=== PATIENT | female | born 1960 | race Caucasian/White ===

== ENCOUNTER 2021-05-17 13:09 | Observation (INO) ==
[2021-05-17] MEDS ORDERED: *HR* LORazepam 2 MG/ML VIAL IVP ONE (13:30)
[2021-05-17] MEDS ORDERED: *HR* LORazepam 2 MG/ML VIAL ONE (13:31)
[2021-05-17] MEDS ORDERED: *HR* LORazepam 2 MG/ML VIAL IM ONE (13:35)
[2021-05-17 14:20] LABS: Basophils # 0.1 K/mcL (0.0-0.2); Basophils % 0.4 %; Eosinophils # 0.2 K/mcL (0.0-0.6); Eosinophils % 1.3 %; Hematocrit 41.8 % (35.3-44.9); Hemoglobin 13.7 g/dL (11.5-15.4); Immature Granulocytes % 0.4 % (0-4); Lymphocytes # 3.8 K/mcL (0.6-4.6); Lymphocytes % 27.2 %; Mean Corpuscular HGB Conc 32.8 g/dL (31.6-35.5); Mean Corpuscular Hemoglobin 32.1 pg (28.0-33.3); Mean Corpuscular Volume 97.9 fL (83.0-100.0); Monocytes % 7.2 %; Neutrophils # 8.9 K/mcL (1.6-8.9); Platelet Count 362 K/mcL (140-400); Red Blood Count 4.27 M/mcL (3.82-4.97); Red Cell Distribution Width 13.8 % (11.5-14.5); Segmented Neutrophils % 63.5 %
[2021-05-17 15:07] LABS: BUN/Creatinine Ratio 5 (6-26); Blood Urea Nitrogen 4 mg/dL (6-20); Calcium 9.4 mg/dL (8.6-10.3); Carbon Dioxide 26 mEq/L (23-29); Chloride 92 mEq/L (98-107); Glucose 113 mg/dL (70-105); Osmolality,Calculated 280 (280-300); Potassium 2.6 mEq/L (3.5-5.1); Sodium 136 mEq/L (136-145); eGFR For African Americans > 60 (> 60); eGFR For Non-African Americans > 60 (> 60)
[2021-05-17 16:28] LABS: Bilirubin,Urine Negative (Negative); Blood,Urine Negative (Negative); Clarity,Urine Turbid (Clear); Color,Urine Light-Yellow (Yellow); Glucose,Urine (UA) Normal (Normal); Ketones,Urine Negative (Negative); Leukocyte Esterase,Urine Moderate (Negative); Nitrite,Urine Negative (Negative); Protein,Urine Negative (Neg-Trace); RBC,Urine 0-3 per hpf (0-3); Specific Gravity,Urine 1.005 (1.010-1.025); Squamous Epithelial Cell,Urine Moderate per hpf (None-Few); Urobilinogen,Urine Normal (Normal); WBC,Urine 15-30 per hpf (0-3)
[2021-05-17 16:47] LABS: Amphetamine Screen,Urine Negative ng/mL (Cutoff=1000); Barbiturate Screen,Urine Negative ng/mL (Cutoff=200); Benzodiazepines Screen,Urine Positive ng/mL (Cutoff=200); Cannabinoid Screen,Urine Negative ng/mL (Cutoff = 50); Cocaine Screen,Urine Negative ng/mL (Cutoff= 300); Opiate Screen,Urine Negative ng/mL (Cutoff=300); Phencyclidine Screen,Urine Negative ng/mL (Cutoff=25)
[2021-05-17] MEDS ORDERED: Potassium Effervescent 25 MEQ TABLET.EFF PO ONE (16:47)
[2021-05-17] MEDS ORDERED: Acetaminophen 325 MG TABLET PO PRN (18:05)
[2021-05-17] MEDS ORDERED: Ondansetron 4 MG/2 ML VIAL IVP PRN (18:05)
[2021-05-17] MEDS ORDERED: Naloxone 0.4 MG/ML INJ IVP PRN (18:05)
[2021-05-17 18:09] LABS: Ethanol < 10 mg/dL (Less than 10)
[2021-05-17] MEDS ORDERED: Gadolinium Contrast Agent (WT Based) IV PRN (18:29)
[2021-05-17] MEDS ORDERED: *HR* LORazepam 2 MG/ML VIAL IVP PRN (18:34)
[2021-05-17 18:50] LABS: Prolactin 18.15 ng/mL (3.80-23.20); Thyroid Stimulating Hormone 7.105 mcIU/mL (0.340-5.600)
[2021-05-17] MEDS ORDERED: cefTRIAXone 2,000 MG in 0.9 % Sodium Chloride Mini Bag 100 ML IVPB SCH (19:00)
[2021-05-18 01:13] LABS: Basophils % 0.3 %; Eosinophils # 0.2 K/mcL (0.0-0.6); Eosinophils % 1.4 %; Hematocrit 37.3 % (35.3-44.9); Hemoglobin 12.7 g/dL (11.5-15.4); Immature Granulocytes % 0.2 % (0-4); Lymphocytes % 25.7 %; Mean Corpuscular Hemoglobin 32.6 pg (28.0-33.3); Mean Corpuscular Volume 95.9 fL (83.0-100.0); Mean Platelet Volume 9.2 fL (9.4-12.4); Monocytes # 0.8 K/mcL (0.0-1.3); Monocytes % 6.6 %; Neutrophils # 7.7 K/mcL (1.6-8.9); Platelet Count 317 K/mcL (140-400); Red Blood Count 3.89 M/mcL (3.82-4.97); Segmented Neutrophils % 65.8 %; White Blood Count 11.6 K/mcL (4.3-11.1)
[2021-05-18 01:35] LABS: BUN/Creatinine Ratio 7 (6-26); Blood Urea Nitrogen 4 mg/dL (6-20); Calcium 8.9 mg/dL (8.6-10.3); Carbon Dioxide 31 mEq/L (23-29); Chloride 102 mEq/L (98-107); Glucose 100 mg/dL (70-105); Magnesium 2.5 mg/dL (1.6-2.6); Osmolality,Calculated 287 (280-300); Potassium 3.6 mEq/L (3.5-5.1); Sodium 140 mEq/L (136-145); eGFR For African Americans > 60 (> 60); eGFR For Non-African Americans > 60 (> 60)
[2021-05-18 01:49] LABS: Thyroid Stimulating Hormone 1.781 mcIU/mL (0.340-5.600)
[2021-05-18 01:50] LABS: Triiodothyronine (T3) Free 3.54 pg/mL (2.50-3.90)
[2021-05-18] MEDS ORDERED: GADOBUTROL 30 MMOL/30 ML VIAL IVP ONE (10:31)
[2021-05-18] MEDS ORDERED: *HR* LORazepam 0.5 MG TABLET PO SCH (13:44)
[2021-05-18] MEDS: levoFLOXacin 750 MG TABLET PO SCH (16:03)
[2021-05-18] MEDS: levETIRAcetam 250 MG TABLET PO SCH (16:50)
[2021-05-18] MEDS: ALPRAZolam 0.5 MG TABLET PO PRN (22:46)
[2021-05-19] MEDS: levETIRAcetam 250 MG TABLET PO SCH (06:03)
[2021-05-19 07:47] LABS: Basophils # 0.1 K/mcL (0.0-0.2); Basophils % 0.8 %; Eosinophils # 0.2 K/mcL (0.0-0.6); Eosinophils % 2.6 %; Hematocrit 40.1 % (35.3-44.9); Hemoglobin 13.1 g/dL (11.5-15.4); Immature Granulocytes % 0.2 % (0-4); Lymphocytes # 2.2 K/mcL (0.6-4.6); Lymphocytes % 33.9 %; Mean Corpuscular HGB Conc 32.7 g/dL (31.6-35.5); Mean Corpuscular Hemoglobin 31.8 pg (28.0-33.3); Mean Corpuscular Volume 97.3 fL (83.0-100.0); Mean Platelet Volume 9.3 fL (9.4-12.4); Monocytes # 0.6 K/mcL (0.0-1.3); Monocytes % 8.6 %; Neutrophils # 3.5 K/mcL (1.6-8.9); Nucleated Red Blood Cells 0.3 /100 WBC (0); Platelet Count 282 K/mcL (140-400); Red Blood Count 4.12 M/mcL (3.82-4.97); Red Cell Distribution Width 14.4 % (11.5-14.5); Segmented Neutrophils % 53.9 %; White Blood Count 6.5 K/mcL (4.3-11.1)
[2021-05-19 08:05] LABS: BUN/Creatinine Ratio 9 (6-26); Blood Urea Nitrogen 6 mg/dL (6-20); Calcium 9.4 mg/dL (8.6-10.3); Carbon Dioxide 31 mEq/L (23-29); Chloride 105 mEq/L (98-107); Glucose 102 mg/dL (70-105); Magnesium 2.2 mg/dL (1.6-2.6); Osmolality,Calculated 294 (280-300); Potassium 3.3 mEq/L (3.5-5.1); Sodium 143 mEq/L (136-145); eGFR For African Americans > 60 (> 60); eGFR For Non-African Americans > 60 (> 60)
[2021-05-19] MEDS ORDERED: atenoloL 25 MG TABLET PO SCH (09:00)
[2021-05-19] MEDS ORDERED: amLODIPine 5 MG TABLET PO SCH (09:00)
[2021-05-19] MEDS ORDERED: Venlafaxine XR (24 HR) 150 MG CAP.ER.24H PO SCH (09:00)
[2021-05-19] MEDS: levoFLOXacin 750 MG TABLET PO SCH (14:05)
[2021-05-19] MEDS: ALPRAZolam 0.5 MG TABLET PO PRN (14:05)
[2021-05-19 15:52] VITALS: BP 127/82; PULSE 70; TEMP 98; O2SAT 95
== END 2021-05-19 17:16 | disposition home or self-care (01) ==
LOC: 3BNU 13:09 → EMEROOARM 13:09 → SUATTDRO 19:24 → 3BNU 19:45
PROVIDERS: ADMIT Pharmacist; ATTEND Internal Medicine

== ENCOUNTER 2021-11-02 14:49 | Inpatient (IN) ==
[2021-11-02] MEDS ORDERED: *HR* LORazepam 2 MG/ML VIAL IM ONE (15:29)
[2021-11-02 15:47] LABS: Basophils # 0.1 K/mcL (0.0-0.2); Basophils % 0.4 %; Eosinophils # 0.2 K/mcL (0.0-0.6); Eosinophils % 1.2 %; Hematocrit 42.8 % (35.3-44.9); Hemoglobin 13.9 g/dL (11.5-15.4); Immature Granulocytes % 0.2 % (0-4); Lymphocytes % 32.9 %; Mean Corpuscular HGB Conc 32.5 g/dL (31.6-35.5); Mean Corpuscular Hemoglobin 30.8 pg (28.0-33.3); Mean Corpuscular Volume 94.7 fL (83.0-100.0); Mean Platelet Volume 9.6 fL (9.4-12.4); Monocytes % 7.8 %; Platelet Count 275 K/mcL (140-400); Red Blood Count 4.52 M/mcL (3.82-4.97); Red Cell Distribution Width 13.2 % (11.5-14.5); Segmented Neutrophils % 57.5 %; White Blood Count 12.1 K/mcL (4.3-11.1)
[2021-11-02 16:04] LABS: Bacteria,Urine Few per hpf (None-Few); Bilirubin,Urine Negative (Negative); Blood,Urine Negative (Negative); Calcium Oxalate Crystals,Urine Present per hpf; Clarity,Urine Turbid (Clear); Color,Urine Yellow (Yellow); Glucose,Urine (UA) Normal (Normal); Ketones,Urine Negative (Negative); Leukocyte Esterase,Urine Negative (Negative); Mucus,Urine Few per lpf (None-Few); Nitrite,Urine Negative (Negative); PH,Urine 5.5 pH Units (5.0-8.0); Protein,Urine Trace mg/dL (Neg-Trace); Specific Gravity,Urine 1.024 (1.010-1.025); Squamous Epithelial Cell,Urine Few per hpf (None-Few); Urobilinogen,Urine Normal (Normal); WBC,Urine 0-3 per hpf (0-3)
[2021-11-02 16:07] LABS: Acetaminophen < 10 mcg/mL (10-20); BUN/Creatinine Ratio 14 (6-26); Blood Urea Nitrogen 9 mg/dL (8-23); Calcium 9.6 mg/dL (8.6-10.3); Carbon Dioxide 25 mEq/L (23-29); Chloride 110 mEq/L (98-107); Ethanol < 10 mg/dL (Less than 10); Glucose 92 mg/dL (70-105); Osmolality,Calculated 280 (280-300); Potassium 3.4 mEq/L (3.5-5.1); Salicylate < 2.5 mg/dL (15.0-30.0); Sodium 136 mEq/L (136-145); eGFR For African Americans > 60 (> 60); eGFR For Non-African Americans > 60 (> 60)
[2021-11-02 16:26] LABS: Amphetamine Screen,Urine Negative ng/mL (Cutoff=1000); Barbiturate Screen,Urine Negative ng/mL (Cutoff=200); Benzodiazepines Screen,Urine Positive ng/mL (Cutoff=200); Cannabinoid Screen,Urine Negative ng/mL (Cutoff = 50); Cocaine Screen,Urine Negative ng/mL (Cutoff= 300); Opiate Screen,Urine Negative ng/mL (Cutoff=300); Phencyclidine Screen,Urine Negative ng/mL (Cutoff=25)
[2021-11-02] MEDS ORDERED: Haloperidol Lactate 5 MG/ML VIAL IM ONE (20:58)
[2021-11-03] MEDS ORDERED: *HR* LORazepam 1 MG TABLET PO ONE (22:17)
[2021-11-04 01:18] LABS: Influenza A PCR Negative (Negative); Influenza B PCR Negative (Negative); Resp. Syncytial Virus PCR Negative (Negative)
[2021-11-04 01:26] LABS: SARS-CoV-2 by PCR (In House) Negative (Negative)
[2021-11-04] MEDS ORDERED: *HR* LORazepam 1 MG TABLET PO PRN (02:04)
[2021-11-04] MEDS ORDERED: haloperidoL 5 MG TABLET PO PRN (02:04)
[2021-11-04] MEDS ORDERED: MOM Conc 10 ML UD.LIQ PO PRN (02:04)
[2021-11-04] MEDS ORDERED: Haloperidol Lactate 5 MG/ML VIAL IM PRN (02:04)
[2021-11-04] MEDS ORDERED: Mag Hydrox/Al Hydrox/Simeth 30 ML UDC PO PRN (02:04)
[2021-11-04] MEDS ORDERED: Ibuprofen 400 MG TABLET PO PRN (02:04)
[2021-11-04] MEDS ORDERED: hydrOXYzine pamoate 25 MG CAPSULE PO PRN (02:04)
[2021-11-04] MEDS ORDERED: *HR* LORazepam 2 MG/ML VIAL IM PRN (02:04)
[2021-11-04] MEDS ORDERED: traZODone 50 MG TABLET PO PRN (02:04)
[2021-11-04] MEDS ORDERED: Acetaminophen 325 MG TABLET PO PRN (02:04)
[2021-11-04] MEDS ORDERED: *HR* LORazepam 2 MG/ML VIAL IVP PRN ×3 (02:27)
[2021-11-04] MEDS: Nicotine 21 MG PATCH.TD24 TD SCH (08:37)
[2021-11-04] MEDS ORDERED: ALPRAZolam 1 MG TABLET PO ONE (09:42)
[2021-11-04] MEDS: Multivit/Ca/Min/Fe/FA 1 TAB TABLET PO SCH (10:50)
[2021-11-04] MEDS: Venlafaxine XR (24 HR) 150 MG CAP.ER.24H PO SCH (10:50)
[2021-11-04] MEDS: atenoloL 50 MG TABLET PO SCH ×2 (10:51→21:32)
[2021-11-04] MEDS ORDERED: QUEtiapine Fumarate 25 MG TABLET PO PRN (14:14)
[2021-11-04] MEDS: *HR* LORazepam 1 MG TABLET PO SCH ×2 (16:36→21:31)
[2021-11-04] MEDS: QUEtiapine Fumarate 25 MG TABLET PO SCH (21:31)
[2021-11-05] MEDS: QUEtiapine Fumarate 25 MG TABLET PO SCH ×2 (11:19→20:28)
[2021-11-05] MEDS: atenoloL 50 MG TABLET PO SCH ×2 (11:19→20:28)
[2021-11-05] MEDS: Multivit/Ca/Min/Fe/FA 1 TAB TABLET PO SCH (11:19)
[2021-11-05] MEDS: Venlafaxine XR (24 HR) 150 MG CAP.ER.24H PO SCH (11:19)
[2021-11-05] MEDS: Nicotine 21 MG PATCH.TD24 TD SCH (11:21)
[2021-11-05] MEDS: *HR* LORazepam 1 MG TABLET PO SCH ×4 (11:21→20:28)
[2021-11-06] MEDS: *HR* LORazepam 1 MG TABLET PO SCH (08:05)
[2021-11-06] MEDS: QUEtiapine Fumarate 25 MG TABLET PO SCH (08:05)
[2021-11-06] MEDS: Multivit/Ca/Min/Fe/FA 1 TAB TABLET PO SCH (08:05)
[2021-11-06] MEDS: Venlafaxine XR (24 HR) 150 MG CAP.ER.24H PO SCH (08:06)
[2021-11-06] MEDS: atenoloL 50 MG TABLET PO SCH ×2 (08:06→21:15)
[2021-11-06] MEDS: Nicotine 21 MG PATCH.TD24 TD SCH (08:08)
[2021-11-06] MEDS ORDERED: hydrOXYzine pamoate 25 MG CAPSULE PO PRN (12:11)
[2021-11-06] MEDS ORDERED: QUEtiapine Fumarate 25 MG TABLET PO SCH (21:00)
[2021-11-06] MEDS: diazePAM 5 MG TABLET PO SCH (21:15)
[2021-11-07] MEDS ORDERED: QUEtiapine Fumarate 25 MG TABLET PO SCH (09:00)
[2021-11-07] MEDS: Multivit/Ca/Min/Fe/FA 1 TAB TABLET PO SCH (09:23)
[2021-11-07] MEDS: atenoloL 50 MG TABLET PO SCH (09:23)
[2021-11-07] MEDS: Venlafaxine XR (24 HR) 150 MG CAP.ER.24H PO SCH (09:23)
[2021-11-07] MEDS: Nicotine 21 MG PATCH.TD24 TD SCH (09:24)
[2021-11-07] MEDS: diazePAM 5 MG TABLET PO SCH (09:24)
[2021-11-07 09:42] VITALS: BP 136/90; PULSE 74; TEMP 97.6; O2SAT 97
== END 2021-11-07 11:05 | disposition home or self-care (01) | DRG 751 ==
LOC: MERGE 14:49 → EMEROOARM 14:49 → 1ANU 11-04 01:57
PROVIDERS: ADMIT Psychiatry & Neurology Psychiatry; ATTEND Psychiatry & Neurology Psychiatry